=== PATIENT | female | born 1965 | race Caucasian/White ===

== ENCOUNTER → 2023-04-03 09:22 | Outpatient (REF) | payer OTHER, SELFPAY ==
--- NOTE | 2023-04-11 16:08 | HP.FOC2 ---
Addendum entered and electronically signed by Colby Dalal MD 04/11/23 16:15:
delete note -- wrong chart
Original Note:
Focused History & Physical
Chief Complaint
HPI:
Chief Complaint: Right Ureteral Stone
HPI / Indication for Planned Procedure:
04/09/23 abrupt onset of right flank pain --> ED; CT: 5 mm proximal Right Ureteral Stone; discharged on meds
04/11/23 returned to ED due to intractable pain with nausea and vomiting
Relevant Past Medical History: Diabetes, Hypertension and Other (previous stone episode '20 years ago'; cholesterolemia)
Relevant Social History: Negative
Relevant Family History: Negative
Relevant Past Surgical History: Positive for (ureteroscopy)
Review of Systems
Review of Pertinent Systems: All Systems Negative Except for the Following Positives (nausea and vomiting)
Medication
See Medication form for detailed medications: Yes
Medication List (including Herbals & OTC):
aspirin 81 mg tablet,delayed release 81 mg PO DAILY 11/27/16
atorvastatin 20 mg tablet 20 mg PO DAILY 11/27/16
folic acid-vit B6-vit B12 2.5 mg-25 mg-2 mg tablet (Folbic) 1 tab PO DAILY 11/27/16
ibuprofen 600 mg tablet 600 mg PO Q6 PRN pain #20 tabs 11/27/16
sitagliptin phosphate 50 mg-metformin 1,000 mg tablet (Janumet) 1 ea PO DAILY 11/27/16
Medications Reviewed: Yes
Allergies and Reactions
Patient has Allergies: No
Noted Allergies and Reactions:
Allergy/AdvReac Type Severity Reaction Status Date / Time
No Known Drug Allergies Allergy Unknown Verified 10/31/20 21:34
Pertinent Physical Exam
All Other Systems: Negative
Head/Neck: Normal
Lungs: Normal
Heart: Normal
Abdomen: Normal
Extremities: Normal
Neurological: Normal
Diagnosis / Assessment
Right Ureteral Stone: proximal, obstructing, causing intractable pain, nausea and vomiting
Plan / Procedure
right ureteroscopy, laser lithotripsy, stenting -- consent signed
Anesthesia/Sedation to be done by Anesthesia Provider: Yes
== END ==
LOC: HWRAD 09:22
PROVIDERS: ATTENDING PHYSICIAN Nurse Practitioner Family; REFERRING PHYSICIAN Specialist
DX: R31.0 Gross hematuria (principal)
CPT/HCPCS: 74177; Q9967

== ENCOUNTER 2023-05-10 06:15 | Day surgery (SDC) | payer OTHER, SELFPAY ==
[2023-05-10] VITALS (12 sets, daily range): BP systolic 132–195; BP diastolic 69–123; BMI 30.4
[2023-05-10 08:20] LABS: Glucose - Point of Care 104 mg/dl (70-99)
[2023-05-10] MEDS: CYSVIEW KIT 100 MG INTRAVES (08:30)
[2023-05-10] MEDS: NORMOSOL-R 1000 IV (08:34)
[2023-05-10 08:47] LABS: INR 0.95; PT 12.7 Sec (11.4-14.6)
[2023-05-10 08:48] LABS: APTT 28.6 Sec (23.4-35.0)
[2023-05-10] MEDS: SYRINGE NON-PUMP 50 ML IRRIG ×2 (09:52→09:53)
[2023-05-10] MEDS: SYRINGE NON-PUMP 50 MG IRRIG ×2 (09:52→09:53)
[2023-05-10] MEDS: DILAUDID 0.5 MG IV ×2 (09:59→10:08)
[2023-05-10 10:06] LABS: Glucose - Point of Care 105 mg/dl (70-99)
[2023-05-10] MEDS: Pyridium 200 MG PO (10:27)
[2023-05-10] MEDS: VALIUM INJECTION 2.5 MG IV (10:32)
--- NOTE | 2023-05-10 11:14 | SUR.PHASEI ---
Post chemo dwell, no drainage from [place], flushed twice manually and after second flush bladder started to drain. CBI in use. Dr Dalal informed of same. Chet fortune RN BSN.
== END 2023-05-10 12:45 | disposition home or self-care (01) ==
LOC: SDS 06:15
PROVIDERS: ATTENDING PHYSICIAN Specialist
DX: C67.0 Malignant neoplasm of trigone of bladder (principal); C67.2 Malignant neoplasm of lateral wall of bladder
CPT/HCPCS: 52234; 88307; 82962; 85610; 85730; 93005; A9589; J9201

== ENCOUNTER 2023-05-11 23:57 | Emergency (ER) | payer OTHER, SELFPAY ==
[2023-05-12 00:05] VITALS: BP 133/78
--- NOTE | 2023-05-12 00:35 | ED.GENMED ---
History of Present Illness
<OMKAR Steward - Last Filed: 05/12/23 00:45>
General
Chief Complaint: Urinary Symptoms
Source: patient
Exam Limitations: none
Time Seen by Provider: 05/12/23 00:12
Nursing documentation reviewed up to this point in time: agreed with
Travel History
Have you had any contact with someone who has COVID-19?: No
Do you have any symptoms of coronavirus? Fever > 100 degrees, chills, cough, shortness of breath, sore throat, loss of taste or smell, muscle aches, or headache?: No
History of Present Illness
History of Present Illness:
Patient is a 58 y/o female with PMH of TURBT yesterday morning presenting with urinary pain x 1 day. Patient states she is having urinary pain that causes her to be dizzy and nauseous. Patient denies syncope or vomiting. Patient states she has had
blood in her urine since the procedure yesterday. Patient states that the amount will vary with urination. Patient admits that she was having severe pain earlier which caused her to contact her doctor to get medicine that would help with pain.
Doctor prescribed Solifenacin, diazepam. Patient admits that since 4pm today she has not urinated and feels full. Patient admits to a fever of 99.8 earlier today with associated chills. Patient denies burning, frequency, or urgency with urination.
Patient denies D/C/V, patient admits to passing gas, denies SOB, ZAMORA, CP. patient denies tobacco or alcohol in the last 48 hrs.
Past History
<OMKAR Steward - Last Filed: 05/12/23 00:45>
Past History
ED Past Medical History: HTN, Hypercholesterolemia and NIDDM
ED Past Surgical History:
Social History
Tobacco: Former smoker
Alcohol: Occasional
Drug: None
Personal:
Living: with family
Employment: Employed
Family History
Family History: Diabetes
Review of Systems
<Marli TroncosowsonSTGA - Last Filed: 05/12/23 00:45>
Review of Systems
Constitutional: Reports fever and chills
EENT: Reports no symptoms
Respiratory: Reports no symptoms
Cardiac: Reports no symptoms
ABD/GI: Reports abdominal pain and nausea
: Reports difficulty voiding and bleeding
Musculoskeletal: Reports no symptoms
Skin: Reports no symptoms
Neurological: Reports dizzy
Endocrine: Reports no symptoms
Hematologic/Lymphatic: Reports no symptoms
Psychiatric: Reports no symptoms
Phy Exam
<Marli Troncosochapin GA - Last Filed: 05/12/23 00:45>
General Physical Exam
General Presentation: well appearing and no apparent distress
General Skin: warm and dry
General Habitus: normal
General Mental: alert
General Hydration: appears well hydrated
ENT Exam
ENT Exam: EOMI, pharynx normal, neck supple and normocephalic
Eye Exam
Eye Exam: PERRL, cornea clear and conjunctiva normal
Cardiovascular Exam
Cardiovascular Exam: regular rate/rhythm, no edema, no murmur and normal peripheral pulses
Pulmonary Exam
Pulmonary Exam: lungs clear, no respiratory distress, no rales, no crackles, no rhonchi, no stridor, no wheezing and no cough
Gastrointestinal Exam
Gastrointestinal Exam: tender (tender to palpation of lower abdomen )
Neurological Exam
Neurological Exam: alert, oriented x3, no motor deficits and speech normal
Musculoskeletal Exam
Musculoskeletal Exam: full ROM and no edema
Skin Exam
Skin Exam: normal color, warm/dry, no rash and no petechia
Psychiatric Exam
Psychiatric Exam: normal mood/affect
Course
<Marli ST JesusGA - Last Filed: 05/12/23 00:45>
Orders/Labs/Results
Orders:
Orders
05/12/23 00:53
Urinalysis Reflex To Culture Urgent
Date Specimen was Collected: 05/12/23
Time Specimen was Collected: 00:51
Urine Microscopic Reflex Cult Urgent
Urine Culture Urgent
MITALI Source: U
Specimen Description:
Date Specimen was Collected: 05/12/23
Time Specimen was Collected: 00:51
Abnormal Lab Results
05/12/23
00:53
Urine Ketones Trace A
(Negative)
Ur Occult Blood Reflex 4+ A
(Negative)
Urine Nitrite (Reflex) Positive A
(Negative)
Urine Bilirubin 1+ A
(Negative)
Leukocyte Esterase Rfl 1+ A
(Negative)
Urine RBC >100 A /HPF
(0-2)
Urine WBC (Reflex) 40-50 A /HPF
(0-5)
Urine Bacteria (Reflex) Moderate A
(Negative)
Urine Albumin (Reflex) 2+ A
(Neg - Trace)
Vital Signs
Initial and Last Documented VS:
Initial Vital Signs
Temp Pulse Resp BP Pulse Ox
98.4 F 84 16 133/78 97
05/12/23 00:05 05/12/23 00:05 05/12/23 00:05 05/12/23 00:05 05/12/23 00:05
Last Documented Vital Signs
Temp Pulse Resp BP Pulse Ox
98.4 F 84 16 133/78 97
05/12/23 00:05 05/12/23 00:05 05/12/23 00:05 05/12/23 00:05 05/12/23 00:05
<Toño Florian, DO - Last Filed: 05/12/23 01:56>
Orders/Labs/Results
Orders:
Orders
05/12/23 00:53
Urinalysis Reflex To Culture Urgent
Date Specimen was Collected: 05/12/23
Time Specimen was Collected: 00:51
Urine Microscopic Reflex Cult Urgent
Urine Culture Urgent
MITALI Source: U
Specimen Description:
Date Specimen was Collected: 05/12/23
Time Specimen was Collected: 00:51
Abnormal Lab Results
05/12/23
00:53
Urine Ketones Trace A
(Negative)
Ur Occult Blood Reflex 4+ A
(Negative)
Urine Nitrite (Reflex) Positive A
(Negative)
Urine Bilirubin 1+ A
(Negative)
Leukocyte Esterase Rfl 1+ A
(Negative)
Urine RBC >100 A /HPF
(0-2)
Urine WBC (Reflex) 40-50 A /HPF
(0-5)
Urine Bacteria (Reflex) Moderate A
(Negative)
Urine Albumin (Reflex) 2+ A
(Neg - Trace)
Vital Signs
Initial and Last Documented VS:
Initial Vital Signs
Temp Pulse Resp BP Pulse Ox
98.4 F 84 16 133/78 97
05/12/23 00:05 05/12/23 00:05 05/12/23 00:05 05/12/23 00:05 05/12/23 00:05
Last Documented Vital Signs
Temp Pulse Resp BP Pulse Ox
98.4 F 84 16 133/78 97
05/12/23 00:05 05/12/23 00:05 05/12/23 00:05 05/12/23 00:05 05/12/23 00:05
<OMKAR Steward - Last Filed: 05/12/23 00:45>
MDM/Problems Addressed
Differential Diagnosis Includes:
urinary retention
acute cystitis
surgical complication post TURBT
MDM/Problems Addressed:
urinary pain
<OMKAR Steward - Last Filed: 05/12/23 00:45>
*Critical Care Note
Total Time (30-74mins, 75-104mins- exclusive of procedures): Not Applicable
ED Attending Note
<OMKAR Steward - Last Filed: 05/12/23 00:45>
-
Portions of this chart may have been created with voice recognition software.� Occasional wrong word or��sound alike� substitutions may have occurred due to the inherent limitations of voice recognition software.
<Toño Florian DO - Last Filed: 05/12/23 01:56>
ED Attending Note
Patient seen and examined by attending physician: Yes
I performed the substantive portion of visit, reviewed & personally made and approve the management plan that is documented in note by myself or ROZ.: Yes
ED Attending Note:
58-year-old female presents with urinary pain status post bladder resection by urology yesterday patient states that her pain is causing her to be dizzy and nauseated. Patient was having severe pain after urination earlier in the day. She states
that the pain came after urinating. She did call her physician who prescribed her Dilaudid which seemed to help. Patient currently denies any other symptoms. She was able to provide a urine sample without issue. Her bladder scan showed about 210
cc of fluid in her bladder. She did urinate 30 cc. Patient was seen in conjunction with the PA student. I have reviewed and agree with the history and treatment plan presented. On my independent physical exam, patient is awake, alert, and
oriented x3, resting comfortably at this time.
Spoke with Dr. Dalal who recommended since patient was not in retention to send her home with close follow-up with his office. He recommends Keflex 500 mg p.o. 3 times daily for 3 days.
Discharge Plan
Departure
Patient Disposition: Home (Routine Discharge)
Date of Disposition: 05/12/23
Time of Disposition: 01:54
Patient with high blood pressure during this ER visit?: Yes
Condition: Good
Discharge Problem:
Hematuria, UTI (urinary tract infection)
Instructions: Urinary Tract Infection, Adult (DC), Blood in the Urine (Hematuria), Adult (DC)
Prescriptions:
New
cephalexin 500 mg capsule
500 mg PO Q8H Qty: 9 0RF
No Action
atorvastatin 20 MG tablet
20 mg PO DAILY
aspirin 81 MG tablet,delayed release (DR/EC)
81 mg PO DAILY
Folbic 1 EACH tablet
1 tab PO DAILY
Janumet 1 EACH tablet
1 ea PO DAILY
ibuprofen 600 MG tablet
600 mg PO Q6 PRN (Reason: pain) Qty: 20 0RF
calcium 600 mg Capsule
1,200 mg PO BID
Vitamin
1 tab PO DAILY
Uro-MP 118-10-40.8-36 mg capsule
1 tab PO QID Qty: 30 3RF
solifenacin 10 mg tablet
10 mg PO DAILY Qty: 14 3RF
Referrals:
Colby Dalal MD [Active] -
Govind Aviles MD [Family Provider] -
Activity Restrictions/Additional Instructions:
Your prescriptions were sent electronically to the pharmacy that you specified.
It was a pleasure meeting you and taking part in your care. We hope for your continued healing and wellness.
Please read discharge instructions in their entirety. However, they are for general education and may not describe your exact diagnosis at discharge. Information on your ER visit and medical conditions were discussed with you along with appropriate
follow up information...
If indicated, please take your medications as instructed and indicated on discharge paperwork.
Please schedule a follow up appointment as directed. Call to schedule an appointment
Please return to the emergency department with ANY change in, persisting, or worsening of symptoms. If any of your symptoms do not improve, or persist, or become more severe within 6-12 hours, please return to the emergency department for further
care.
Please return to the emergency department if you develop a headache, neck pain/stiffness, fever greater than 100.4F, chest pain, shortness of breath, persistent nausea, vomiting, slurred speech, difficulty walking, numbness/tingling, weakness, signs
of infection or any other symptoms that are worrisome to you.
If you have any questions or concerns please do not hesitate to call the Hospital at or E-mail me directly at [email or web address]
Interventions
Interventions:
*Risk Screen - Suicide Last Done: 05/12/23 00:05
*Neglect/Abuse Screening Last Done: 05/12/23 00:05
*ED COVID-19 Vaccine History Last Done: 05/12/23 00:05
Discharge Date and Time
Print Language: ESTONIAN
[2023-05-12 01:04] LABS: Urine Albumin 2+ (Neg - Trace); Urine Bilirubin 1+ (Negative); Urine Character Very Cloudy (Clear); Urine Color Brown; Urine Glucose Negative (Negative); Urine Ketone Trace (Negative); Urine Leukocyte 1+ (Negative); Urine Nitrite Positive (Negative); Urine Occult Blood 4+ (Negative); Urine Urobilinogen Negative (Neg - 1+); Urine pH 6.5 (5.0-9.0)
[2023-05-12 01:32] LABS: Urine Squamous Cell 16-20 /LPF (Few)
[2023-05-12 01:33] LABS: Urine Bacteria Moderate (Negative); Urine Red Blood Cell >100 /HPF (0-2); Urine White Cell 40-50 /HPF (0-5)
[2023-05-12] MEDS: KEFLEX 500 MG PO (02:17)
== END 2023-05-12 02:51 | disposition home or self-care (01) ==
LOC: EMR 23:57
PROVIDERS: EMERGENCY PHYSICIAN Student in an Organized Health Care Education/Training Program; FAMILY PHYSICIAN Family Medicine
DX: N39.0 Urinary tract infection, site not specified (principal); R31.9 Hematuria, unspecified; I10 Essential (primary) hypertension; E78.00 Pure hypercholesterolemia, unspecified; E11.9 Type 2 diabetes mellitus without complications; Z83.3 Family history of diabetes mellitus; Z87.891 Personal history of nicotine dependence
CPT/HCPCS: 99282; 81003; 81015; 87086

== ENCOUNTER → 2023-07-03 17:17 | Outpatient (REF) | payer OTHER, SELFPAY | LOC: WDC 17:17 | PROVIDERS: ATTENDING PHYSICIAN Obstetrics & Gynecology; FAMILY PHYSICIAN Nurse Practitioner Family | DX: Z12.31 Encounter for screening mammogram for malignant neoplasm of breast (principal) | CPT/HCPCS: 77063; 77067 ==

== ENCOUNTER → 2024-07-20 10:58 | Outpatient (REF) | payer OTHER, SELFPAY | LOC: WDC 10:58 | PROVIDERS: ATTENDING PHYSICIAN Obstetrics & Gynecology; FAMILY PHYSICIAN Family Medicine | DX: Z12.31 Encounter for screening mammogram for malignant neoplasm of breast (principal) | CPT/HCPCS: 77063; 77067 ==